=== PATIENT | female | born 1990 | race Caucasian/White ===

== ENCOUNTER 2023-10-25 11:45 | Outpatient (CLI) | payer OTHER, SELFPAY ==
--- NOTE | ~2023-10-25 | US_ITS ---
EXAMINATION: US OB <= 14 weeks fetus DATE: 10/25/2023 12:10 INDICATION: with uncertain dating and viability. TECHNIQUE: Real-time pelvic ultrasound utilizing both a transvaginal and transabdominal probe was pe rformed. The interpreting radiologist was not present for the study. COMPARISON: None. FINDINGS: The uterus measures 10.0 x 6.8 x 8.6 cm. There is an intrauterine gestational sac. A yolk sac and fe maria esther pole are identified. The crown rump length measures 2.8 cm, which correlates with an estimated ge stational age of 9 weeks and 4 days. heart motion is identified measuring 155 beats per minute (bpm) by M-mode Doppler. The right ovary measures 2.5 x 1.7 x 2.5 cm. The left ovary is not visualized. There is no free fluid in the pelvis. IMPRESSION: 1. Single living fetus with heart rate of 155 bpm. 2. Gestational age by ultrasound of 9 weeks 4 day(s) +/- 6 day(s) with ultrasound estimated date of delivery (LILIANA) of 05/25/2024. Reviewed, dictated and finalized at location A. IMPRESSION: 1. Single living fetus with heart rate of 155 bpm. 2. Gestational age by ultrasound of 9 weeks 4 day(s) +/- 6 day(s) with ultraso und estimated date of delivery (LILIANA) of 05/25/2024.
== END 2023-10-25 11:46 ==
LOC: MICIMG 11:48
PROVIDERS: PCP Advanced Practice Midwife; Visit Provider Advanced Practice Midwife
DX: Z36.87 Encounter for antenatal screening for uncertain dates (principal); Z3A.09 9 weeks gestation of pregnancy
CPT/HCPCS: 76801

== ENCOUNTER 2024-04-17 10:05 | Observation (INO) | payer OTHER, SELFPAY ==
[2024-04-17 10:30] VITALS: BP 106/65; PULSE 96
--- NOTE | 2024-04-17 10:31 | OBADM ---
This patient, Brianna Bennett, admitted to the OB room OB Post 116 for observation. Patient/family oriented to hospital policies and general routines including ID bracelet, bed and alarms, visiting hours, pain management, procedures, bathroom and other care routines, personal items, smoking policy, room service/diet, and visiting hours. Patient/Family are encouraged to report perceived risks to care and to ask questions if they do not understand what they are told or what they should do.
[2024-04-17 10:45] VITALS: BP 99/73; PULSE 98
--- NOTE | 2024-04-17 10:59 | PC.NURSE ---
Dr. Stauffer notified of patient's arrival on unit with light brown discharge. No vaginal bleeding, leaking, and good movement. SVE perrformed- /-2. Okay to discharge with pelvic rest and no heavy lifting.
--- OUTSIDE RECORDS SUMMARY | 2024-04-17 11:13 | XMS_ITS | Clinical Summary ---
Author Organization [facility] Address [address] [place] [id number] Care Team Providers Care Autism Specialist Name Role Phone Hyacinth Smith MD Primary Care Provider [phone] CandieNate DO Unavailable [phone] Allergies Active Allergy Reactions Criticality Noted Date Comments Shellfish Allergy Hives High 09/08/2023 Medications sertraline (ZOLOFT) 50 MG tabletIndication s:Anxiety and depression Take 3 tab po qd 270 tablet 3 09/22/2023 Active Active Problems No known active problems Immunizations Name Administration Dates Next Due Dtp (Generic) 11/24/1992,10/02/1991,02/19/1991 ,12/11/1990 Hib (Generic) 12/11/1990 Influenza Adult (Generic) 01/04/2018 MMR (MMRII) 11/24/1992,12/11/1990 Polio Opv (Generic) 11/24/1992,10/02/1991,1990 Tdap (Generic) 02/26/2016 Family History Medical History Relation Comments No Known Problems Father No Known Problems Mother Relation Status Comments Father Alive Mother Alive Social History Tobacco Use Types Packs/Day Years Used Date Smoking Tobacco: Never Passive Smoke Exposure: Never Smokeless Tobacco: Never Tobacco Cessation:Counseling Given: No Alcohol Use Standard Drinks/Week Comments Not Currently 0 (1 standard drink = 0.6 oz pur e alcohol) PHQ-2 Answer Date Recorded Patient Health Questionnaire-2 Score 0 09/22/2023 Comments No Sex and Gender Information Value Date Recorded Sex Assigned at Not on file Legal Sex Female 7:45 PM CDT Gender Identity Not on file Sexual Orientation Not on file Last Filed Vital Signs Vital Sign Reading Time Taken Comments Blood Pressure 105/62 09/22/2023 3:13 PM CDT Pulse 89 09/22/2023 3:13 PM CDT Temperature 36.6 ??C (97.8 ??F) 09/22/2023 3:13 PM CD T Respiratory Rate 18 09/22/2023 3:13 PM CDT Oxygen Saturation 98% 09/22/2023 3:13 PM CDT Inhaled Oxygen Concentration - - Weight 61.7 kg (136 lb) 09/22/2023 3:13 PM CDT Height 170.2 cm (5' 7 ) 09/22/2023 3:13 PM CDT Body Mass Index 21.3 09/22/2023 3:13 PM CDT Plan of Treatment Upcoming Encounters Date Type Department Care Team (Late st Contact Info) Description 09/16/2024 7:00 AM CDT Office Visit [facility] Family Medicine [facility] [address] [place] [address] Hyacinth Smith MD [address] [place], [place] [id number] Health Maintenance Due Date Last Done Comments Hepatitis B Vaccines (1 of 3 - 19+ 3-dose series) 09/27/2007 COVID-19 Vaccine ( season) 2023 Influenza Adult (#1) 2023 01/04/2018 PHQ-2 (Physician [place]) 03/13/2024 09/22/2023 Annual Physical 09/07/2024 09/08/2023 PHQ-2 (Physician [place]) 09/21/2024 09/22/2023 Cervical Cancer Screening Pap Smear (Age 30 to 64) Every 3 Years 08/24/2025 08/24/2022 DTaP, Tdap and Td Vaccines (6 - Td or Tdap) 02/25/2026 02/26/2016, 11/24/1992, 10/02/1991, Additional history exists Cervical Cancer Screening Pap with HPV Testing (Age 30 to 64) Every 5 Years 08/26/2027 08/24/2022 Cervical Cancer Screening with HPV 08/26/2027 Hepatitis C Completed 09/12/2023 HPV Vaccines Aged Out No longer eligi ble based on patient's age to complete this topic Meningococcal B Vaccine Aged Out No l onger eligible based on patient's age to complete this topic Meningococcal Vaccine Aged Out No janae nicci eligible based on patient's age to complete this topic Pneumococcal Vaccine: Pediatrics (0 to 5 Years) and At-Risk Patients (6 to 64 Years) Aged Out No longer eligible based on patient's age to complete this topic RSV Immunizations Under 20 Months Aged Out No longer eligible based on patient's age to complete this topic Procedures Procedure Name Priority Date/Time Associated Diagnosis Comments HEPATITIS C ANTIBODY Routine 09/12/2023 1:32 PM CDT Encounter for hepatitis C screening test for low risk patient from Last 3 Months or Most Recently Relevant to Health Maintenance Results * HEPATITIS C ANTIBODY (09/12/2023 1:32 PM CDT) HEPATITIS C AB NON-REACTI VE NON-REACT LEESA 09/12/2023 10:47 PM CDT [facility] Comment: ANTIBODIES TO HCV NOT DETECTED. DOES NOT EXCLUDE THE POSSIBILITY OF EXPOSURE TO HCV. 09/12/2023 1:32 PM CDT Hyacinth Smith MD LABORATORY Final Result [facility] [address] [place] [address], [id number] from Last 3 Months or Most Recently Relevant to Health Maintenance Insurance [facility] Care Teams Autism Specialist Relationship Specialty Start Date End Date Hyacinth Smith MD [address] [place] [address] PCP - General FAMILY PRACTICE 09/08/23 Nate Schreiber DO [address] [place] [address] 09/08/23
--- NOTE | 2024-04-22 07:59 | PM.OBTRLD ---
OB - Triage/Final Diagnosis Visit Information Reason for evaluation: other (Vaginal spotting) Comments/Additional reasons for admission: I have assessed the risk for this patient, Brianna Bennett, and determined that she would benefit from observation care.
== END 2024-04-17 11:15 | disposition home or self-care (01) ==
PROVIDERS: Admitting Provider Obstetrics & Gynecology Gynecology; PCP Advanced Practice Midwife; Visit Provider Obstetrics & Gynecology Gynecology
DX: O26.853 Spotting complicating pregnancy, third trimester (principal); Z3A.34 34 weeks gestation of pregnancy
CPT/HCPCS: G0378; G0379

== ENCOUNTER 2024-05-05 11:10 | Observation (INO) | payer OTHER, SELFPAY ==
--- NOTE | 2024-05-05 11:10 | OBADM ---
This patient, Brianna Bennett, admitted to the OB room Labor/Delivery/Recovery 105 for observation. Patient/family oriented to hospital policies and general routines including ID bracelet, bed and alarms, visiting hours, pain management, procedures, bathroom and other care routines, personal items, smoking policy, room service/diet, and visiting hours. Patient/Family are encouraged to report perceived risks to care and to ask questions if they do not understand what they are told or what they should do.
[2024-05-05 11:20] VITALS: BMI 23.4
--- OUTSIDE RECORDS SUMMARY | 2024-05-05 12:22 | XMS_ITS | Clinical Summary ---
Author Organization [facility] Address [address] [place] [id number] Care Team Providers Care Prn Physical Therapist Name Role Phone Hyacinth Smith MD Primary Care Provider [phone] CandieNate DO Unavailable [phone] Allergies Active Allergy Reactions Criticality Noted Date [...] 89 09/22/2023 3:13 PM CDT Temperature 36.6 C (97.8 F) 09/22/2023 3:13 PM CDT Respiratory Rate 18 09/22/2023 3:13 PM CDT [...] Description 09/16/2024 7:00 AM CDT Office Visit [facility] Family Medicine [facility] [address] [place] [phone] [place] [address] [place] [phone] Health Maintenance Due Date Last Done Comments Hepatitis B Vaccines (1 of 3 - 19+ 3-dose series) 09/27/2007 COVID-19 Vaccine (2023- season) 2023 Influenza Adult (#1) 2023 01/04/2018 PHQ-2 (Physician [place]) 03/13/2024 09/22/2023 Annual Physical 09/07/2024 09/08/2023 PHQ-2 (Physician [place]) 09/21/2024 09/22/2023 Cervical Cancer Screening Pap Smear [...] 09/12/2023 10:47 PM CDT [facility] Comment: ANTIBODIES TO HCV NOT DETECTED. DOES NOT EXCLUDE THE POSSIBILITY OF EXPOSURE TO HCV. 09/12/2023 1:32 PM CDT Hyacinth Smith MD LABORATORY Final Result [facility] [address] [place] [address], [id number] from Last 3 Months or Most Recently Relevant to Health Maintenance Insurance [facility] Care Teams Prn Physical Therapist Relationship Specialty Start Date End Date Hyacinth Smith MD [address] [address] PCP - General FAMILY PRACTICE 09/08/23 Nate Schreiber DO [address] [address] 09/08/23
--- OUTSIDE RECORDS SUMMARY | 2024-05-05 12:22 | XMS_ITS | Clinical Summary ---
Author Organization [facility] Address [address] [place] [phone] Phone Care Team Providers Care Scrap Metal Collector Name Role Phone Unavailable Primary Care Provider Unavailabl e Encounters Date Type Department Care Team Description 05/01/2024 External Device Data [facility] ABSTRACTION Provider, Abstract 04/10/2024 External Device Data [facility] ABSTRACTION Provider, Abstract 04/04/2024 External Device Data [facility] [place]STRACTION Provider, Abstract from Last 3 Months Social History Tobacco Use Types Packs/Day Years Used Date Smoking Tobacco: Never Assessed Comments Unknown Sex and Gender Information Value Date Recorded Sex Assigned at Not on file Legal Sex Female 7:42 AM CDT Gender Identity Not on file Sexual Orientation Not on file Plan of Treatment Health Maintenance Due Date Last Done Comments HEPATITIS B VACCINES (1 of 3 - 19+ 3-dose series) 09/27/2007 CERVICAL CANCER SCREENING 2018 INFLUENZA VACCINE (#1) 2023 01/04/2018 DTAP/TDAP/TD VACCINES (6 - Td or Tdap) 02/25/2026 02/26/2016, 11/24/1992, 10/02/1991, Additional history exists HPV VACCINES Aged Out No longer eligi ble based on patient's age to complete this topic PNEUMOCOCCAL VACCINE 0-64 YEARS Aged Out No longer eligible based on patient's age to complete this topic Insurance [employer] OPEN ACCESS HMO
--- NOTE | 2024-05-08 12:26 | PM.OBTRLD ---
OB - Triage/Final Diagnosis Visit Information Reason for evaluation: threatened labor Comments/Additional reasons for admission: I have assessed the risk for this patient, Brianna Bennett, and determined that she would benefit from observation care.
== END 2024-05-05 12:35 | disposition home or self-care (01) ==
PROVIDERS: Admitting Provider Obstetrics & Gynecology; Visit Provider Obstetrics & Gynecology
DX: O47.1 False labor at or after 37 completed weeks of gestation (principal); Z3A.37 37 weeks gestation of pregnancy
CPT/HCPCS: G0378; G0379

== ENCOUNTER 2024-05-10 15:02 | Inpatient (IN) | payer OTHER, SELFPAY ==
[2024-05-10] VITALS (79 sets, daily range): BP systolic 84–140; BP diastolic 42–104; PULSE 28–123; TEMP 36.6–37.6; O2SAT 84–100; BMI 23.6
[2024-05-10 15:53] LABS: Basophils Percent Auto 0.4 % (0.2-1.2); Eosinophils Absolute Auto 0.1 K/mm3 (0-0.3); Eosinophils Percent Auto 1.4 % (0-4.4); Hemoglobin 12.2 g/dL (12.0-15.0); Immature Granulocyte Absolute 0.06 K/mm3 (0.00-0.031); Immature Granulocyte Percent A 0.7 % (0-0.5); Lymphocytes Percent Auto 15.5 % (18.3-44.2); Mean Corpuscular HGB Conc 33.9 g/dl (32-36); Mean Corpuscular Hemoglobin 31.9 pg (26-34); Mean Platelet Volume 10.4 fl (7.4-10.4); Monocytes Absolute Auto 0.8 K/mm3 (0.1-0.6); Monocytes Percent Auto 8.3 % (2.6-8.5); Neutrophils Absolute Auto 6.7 K/mm3 (1.3-6.7); Neutrophils Percent Auto 73.7 % (45.5-73.1); Platelet Count Result 226 k/mm3 (150-375); Red Blood Count 3.83 M/mm3 (4.2-5.4); Red Cell Distribution Width 12.8 % (11.5-14.5); White Blood Count 9.1 K/mm3 (4.5-10.0)
[2024-05-10] MEDS: LACTATED RINGERS 1,000 ML 125 ML IV CONT ×2 (15:59→16:45)
--- NOTE | 2024-05-10 16:23 | LDADM ---
This patient, Brianna Bennett, was admitted to Labor/Delivery/Recovery 107 on 05/10/24 at 15:02. Plans for labor, pain management and were discussed with patient. Patient/family oriented to hospital policies and general routines including ID bracelet, bed and alarms, visiting hours, pain management, procedures, bathroom and other care routines, personal items, smoking policy, room service/diet and guest tray routines, security routines, and visiting hours. Patient/Family are encouraged to report perceived risks to care and to ask questions if they do not understand what they are told or what they should do. See OBIX for further documentation.
[2024-05-10 16:29] LABS: Syphilis IgG/IgM Antibody Negative (Negative)
[2024-05-10] MEDS: ONDANSETRON INJ 4 MG/2 ML VIAL IV PUSH (16:42)
[2024-05-10 16:44] LABS: HIV 1/2 Ab P24 Ag Result Negative (Negative)
--- NOTE | 2024-05-10 17:36 | WPDANESEPPF ---
Anes - Initial Pre Proc Eval Date/Time: 05/10/24 17:36 Surgeon: Elina Stauffer MD Pre Op Diagnosis: Labor Patient Data Age: 33 Gender: F Height: 1.7 m Weight: 68.6 kg Last Vital Signs Temp 37.6 C 05/10/24 16:00 Pulse 94 05/10/24 17:35 BP 120/64 05/10/24 17:35 Pulse Ox 97 05/10/24 17:31 Allergies Allergy/AdvReac Type Severity Reaction Status Date / Time seafood Allergy Mild hives Uncoded 05/05/24 12:41 Home Medications ?Medication ?Instructions ?Recorded ?Confirmed ?Type sertraline 50 mg tablet 150 mg PO DAILY 05/05/24 05/10/24 History cholecalciferol (vitamin D3) 50 2,000 unit PO ONCE 05/10/24 05/10/24 History mcg (2,000 unit) tablet (D3 DOTS) ferrous sulfate 325 mg (65 mg 325 mg PO DAILY 05/10/24 05/10/24 History iron) tablet (Feosol) vit no.95-ferrous 1 tablet PO DAILY 05/10/24 05/10/24 History fumarate 28 mg-folic acid 800 mcg tablet () Laboratory Tests 05/10/24 15:47 WBC 9.1 K/mm3 (4.5-10.0) RBC 3.83 L M/mm3 (4.2-5.4) Hgb 12.2 g/dL (12.0-15.0) Hct 36.0 L % (37.0-47.0) MCV 94.0 fl (80-100) MCH 31.9 pg (26-34) MCHC 33.9 g/dl (32-36) RDW 12.8 % (11.5-14.5) Plt Count 226 k/mm3 (150-375) MPV 10.4 fl (7.4-10.4) Immature Gran % (Auto) 0.7 H % (0-0.5) Neut % (Auto) 73.7 H % (45.5-73.1) Lymph % (Auto) 15.5 L % (18.3-44.2) [place] % (Auto) 8.3 % (2.6-8.5) Eos % (Auto) 1.4 % (0-4.4) Baso % (Auto) 0.4 % (0.2-1.2) Lymph # (Auto) 1.40 K/mm3 (0.9-3.2) [place] # (Auto) 0.8 H K/mm3 (0.1-0.6) Eos # (Auto) 0.1 K/mm3 (0-0.3) Baso # (Auto) 0.0 K/mm3 (0.0-0.1) Abs Immat Gran (auto) 0.06 H K/mm3 (0.00-0.031) Absolute Neuts (auto) 6.7 K/mm3 (1.3-6.7) Absolute Nucleated RBC 0.000 K/mm3 (0.0-0.012) Nucleated RBC % 0.0 % (0.0-0.2) Syphilis IgG/IgM Ab Negative (Negative) HIV 1&2 Ab/P24 Ag 4thGn Negative (Negative) Blood Type O Positive Antibody Screen Negative Patient hx anesthesia problems: none Family hx anesthesia problems: none Results Review: All pre-operative results and documents have been reviewed as part of the pre-operative evaluation. [facility] Family History Family History Other Patient denies significant medical history Social History Social History Smoking status: Never smoker Second hand tobacco smoke exposure: No Do You Feel Safe in your Home?: Yes Lack of Transportation: No Lack of Food: Never True Current Housing: I Have Housing Concerned About Future Housing: No Difficulty Paying Gas/Electric Bills: No Difficulty Paying for Meds: No Currently Unemployed: No Education: High School Diploma/GED Difficulty w/ Childcare or Family Care: No Spiritual care concerns: No Anes - Eval Final PreProcedure Day of Procedure 05/10/24 17:36 Patient weight: normal Heart: tachycardia Neurological: alert and oriented Last oral intake: >/= 8 hours ASA classification: III Emergent: no Anesthetic plan: proceed Anesthesia type and monitoring: regional epidural and standard monitoring Results Review: All pre-operative results and documents have been reviewed as part of the pre-operative evaluation. Informed Consent: The patient's anesthetic plan and its attendant risks and benefits were discussed with the patient/family/POA. Questions were solicited and answers provided to the satisfaction of the patient/family/POA.
--- NOTE | 2024-05-10 18:30 | PM.IMHP ---
H&P: HPI History of Present Illness Date/Time: 05/10/24 18:30 Chief Complaint: Water broke Narrative: 33 y/o at 37 6/7 weeks with gush of fluid. SROM confirmed here. GBS neg. Now comfortable with epidural. Review of Systems Review of Systems: All systems reviewed & are unremarkable except as noted in HPI and below PMFSH Past Medical History Medical History History of suicide attempt History of anxiety History of depression Family History Family History Other Patient denies significant medical history Social History Social History Smoking status: Never smoker Second hand tobacco smoke exposure: No Do You Feel Safe in your Home?: Yes Lack of Transportation: No Lack of Food: Never True Current Housing: I Have Housing Concerned About Future Housing: No Difficulty Paying Gas/Electric Bills: No Difficulty Paying for Meds: No Currently Unemployed: No Education: High School Diploma/GED Difficulty w/ Childcare or Family Care: No Spiritual care concerns: No Meds Home Medications and Allergies Home Medications ?Medication ?Instructions ?Recorded ?Confirmed ?Type sertraline 50 mg tablet 150 mg PO DAILY 05/05/24 05/10/24 History cholecalciferol (vitamin D3) 50 2,000 unit PO ONCE 05/10/24 05/10/24 History mcg (2,000 unit) tablet (D3 DOTS) ferrous sulfate 325 mg (65 mg 325 mg PO DAILY 05/10/24 05/10/24 History iron) tablet (Feosol) vit no.95-ferrous 1 tablet PO DAILY 05/10/24 05/10/24 History fumarate 28 mg-folic acid 800 mcg tablet () Allergies Allergy/AdvReac Type Severity Reaction Status Date / Time seafood Allergy Mild hives Uncoded 05/05/24 12:41 Vital Signs Vital Signs - 24 hr 05/10/24 15:59 05/10/24 16:00 05/10/24 16:01 Temperature 37.6 C Pulse Rate 102 H 90 Blood Pressure 131/73 140/65 Pulse Oximetry 05/10/24 16:16 05/10/24 16:30 05/10/24 16:42 Temperature Pulse Rate 88 87 Blood Pressure 119/83 123/71 Pulse Oximetry 100 05/10/24 16:45 05/10/24 16:47 05/10/24 16:52 Temperature Pulse Rate 81 Blood Pressure 128/87 Pulse Oximetry 100 100 05/10/24 16:56 05/10/24 16:56 05/10/24 17:01 Temperature Pulse Rate 86 Blood Pressure 133/61 Pulse Oximetry 95 93 100 05/10/24 17:06 05/10/24 17:06 05/10/24 17:15 Temperature Pulse Rate 85 Blood Pressure 133/74 Pulse Oximetry 100 100 05/10/24 17:19 05/10/24 17:21 05/10/24 17:26 Temperature Pulse Rate 118 H Blood Pressure 137/71 Pulse Oximetry 100 100 97 05/10/24 17:26 05/10/24 17:28 05/10/24 17:30 Temperature Pulse Rate 100 84 Blood Pressure 107/78 125/67 Pulse Oximetry 100 05/10/24 17:31 05/10/24 17:33 05/10/24 17:35 Temperature Pulse Rate 87 94 Blood Pressure 126/63 120/64 Pulse Oximetry 97 05/10/24 17:36 05/10/24 17:38 05/10/24 17:40 Temperature 37.4 C Pulse Rate 85 89 Blood Pressure 127/56 L 125/59 L Pulse Oximetry 97 05/10/24 17:41 05/10/24 17:43 05/10/24 17:45 Temperature Pulse Rate 91 84 Blood Pressure 117/97 H 124/72 Pulse Oximetry 96 05/10/24 17:46 05/10/24 17:50 05/10/24 17:51 Temperature Pulse Rate 104 H Blood Pressure 97/82 L Pulse Oximetry 100 100 05/10/24 17:53 05/10/24 17:55 05/10/24 17:56 Temperature Pulse Rate 123 H 109 H Blood Pressure 87/54 L 111/77 Pulse Oximetry 100 05/10/24 17:58 05/10/24 18:00 05/10/24 18:01 Temperature 37.4 C Pulse Rate 92 84 Blood Pressure 84/42 L 112/68 Pulse Oximetry 100 05/10/24 18:03 05/10/24 18:05 05/10/24 18:06 Temperature Pulse Rate 96 74 Blood Pressure 116/70 111/87 Pulse Oximetry 100 05/10/24 18:08 05/10/24 18:10 05/10/24 18:11 Temperature Pulse Rate 86 94 Blood Pressure 122/74 128/74 Pulse Oximetry 100 05/10/24 18:13 05/10/24 18:15 05/10/24 18:16 Temperature Pulse Rate 119 H 82 Blood Pressure 122/68 122/67 Pulse Oximetry 98 05/10/24 18:18 05/10/24 18:20 05/10/24 18:23 Temperature Pulse Rate 97 83 108 H Blood Pressure 102/73 116/61 126/104 H Pulse Oximetry 05/10/24 18:25 05/10/24 18:26 Temperature Pulse Rate 91 Blood Pressure 120/69 Pulse Oximetry 100 Exam Const: Orientation/consciousness: patient oriented x3 Other: Well-developed, well-nourished female in no acute distress. Neck: Thyroid: thyroid normal Lymphatic: no lymphadenopathy noted (in neck, axilla or inguinal nodes) Resp: Effort & Inspection: normal respiratory effort Auscultation: clear to auscultation bilaterally Cardio: Rate: regular rate Rhythm: regular rhythm Heart sounds: S1 normal heart sound present and S2 normal heart sound present GI: Other: ABD: Soft, nontender, nondistended, gravid. NST reactive. TOCO: contractions every 2-3 min. No guarding or rebound tenderness. No hepatosplenomegaly. : General: Yes no CVA tenderness Other: Cervix C/+2. Back/Spine/Pelvis: Back: no CVA tenderness Skin: General skin exam: normal color and no rashes or lesions noted Neuro: General: patient oriented x3 Extrem: Other: Extremities: nontender with no edema Psych: Mental Status: mental status grossly normal Affect: normal affect H&P: Results Labs Labs: Short CBC 05/10/24 Range/Units 15:47 WBC 9.1 (4.5-10.0) K/mm3 Hgb 12.2 (12.0-15.0) g/dL Hct 36.0 L (37.0-47.0) % Plt Count 226 (150-375) k/mm3 Assessment and Plan Assessment and plan (1) Term : Code(s): Z34.90 - Encounter for supervision of normal , unspecified, unspecified trimester Status: Acute Assessment and Plan: A: IUP at 37 6/7 weeks in labor. P: Begin pushing. Anticipate . (2) Active labor at term: Status: Acute
[2024-05-10] MEDS: OXYTOCIN 30 UNITS/NS 500 ML 30 UNITS/500 ML BAG IV CONT (19:10)
--- NOTE | 2024-05-10 19:58 | PM.OBPRVD ---
OB - Vaginal Delivery Note Procedure Delivery date: 05/10/24 Delivery monitor: External FHT and External Uterine Route of delivery: Episiotomy description: None Laceration Description: None Specimen: Yes (cord blood) Quantitative Blood Loss (ml): 180 Anesthesia type: Epidural Disposition: PACU Complications: None Narrative: 33 y/o at 37 6/7 weeks gestation who presented to the hospital after a gush of fluid. SROM diagnosed. She received an epidural for pain control. Her labor progressed and her cervix dilated completely. The second stage of labor was augmented with oxytocin. She pushed and delivered the 's head to the perineum, followed by the body. The nose and mouth were bulb suctioned. After a delay, the cord was clamped and cut. The infant was handed off the field. Cord blood was collected. The placenta delivered spontaneously and was grossly normal in appearance. The usual 3 vessel cord was noted. There were no lacerations. Needle and instrument counts were correct. The patient was taken to recovery room in stable condition. The went to the nursery in stable condition. I was present and scrubbed for the entire delivery. [place] Baby Date of : 05/10/24 Time of : 19:48 Gestational Age by Date: 37 gender: Male Weight (pounds): 6 Weight (ounces): 11 presentation: vertex position: Left Occiput Anterior Placenta delivery description: Spontaneous and Normal Configuration Cord Vessel Description: 3 Vessels and Delayed Cord Clamping score one minute: 9 score five minutes: 9
--- NOTE | 2024-05-10 20:01 | PM.OBDSVD ---
DS: Admitting Diagnosis Discharge Date 05/12/24 Admitting Diagnosis IUP at 37 6/7 weeks SROM DS: Discharge Diagnosis Discharge Diagnosis (1) (normal spontaneous vaginal delivery): Code(s): O80 - Encounter for full-term uncomplicated delivery Status: Acute OB - DS: Summary OB Procedures : None OB Procedures Intrapartum: Spontaneous Vag Delivery OB Procedures: : None Peripartum Data Laceration Description: None Episiotomy description: None Time Spent with Patient Time attestation: Total time spent providing and/or coordinating discharge services: DS: Data Data Completed and Pending Labs on day of discharge: Labs from last 24 hours 05/10/24 15:47 WBC 9.1 RBC 3.83 L Hgb 12.2 Hct 36.0 L MCV 94.0 MCH 31.9 MCHC 33.9 RDW 12.8 Plt Count 226 MPV 10.4 Immature Gran % (Auto) 0.7 H Neut % (Auto) 73.7 H Lymph % (Auto) 15.5 L [place] % (Auto) 8.3 Eos % (Auto) 1.4 Baso % (Auto) 0.4 Lymph # (Auto) 1.40 [place] # (Auto) 0.8 H Eos # (Auto) 0.1 Baso # (Auto) 0.0 Abs Immat Gran (auto) 0.06 H Absolute Neuts (auto) 6.7 Absolute Nucleated RBC 0.000 Nucleated RBC % 0.0 Syphilis IgG/IgM Ab Negative HIV 1&2 Ab/P24 Ag 4thGn Negative Blood Type O Positive Antibody Screen Negative Discharge Plan Discharge Attending physician on discharge: Jerry Morrison Discharging Clinician: Jerry Morrison Patient Disposition: Home, Self-Care Activity: pelvic rest Diet: regular Discharge Instructions: Call or return if temperature above 100.4? F, increased abdominal pain, increased vaginal bleeding or any new problems. Patient Language: [place] Island[place] Stand Alone Forms: General Discharge Information Follow-up/Referrals: Elina Stauffer MD [Physician] - 6 Weeks Discharge Medications: New ibuprofen 600 mg tablet 600 mg PO Q6H PRN (Reason: cramps) Qty: 30 0RF Continued PNV cmb#95-ferrous fumarate-FA [] 28 mg iron- 800 mcg tablet 1 tablet PO DAILY ferrous sulfate [Feosol] 325 mg (65 mg iron) tablet 325 mg PO DAILY cholecalciferol (vitamin D3) [D3 DOTS] 50 mcg (2,000 unit) tablet 2,000 unit PO ONCE sertraline 50 mg tablet 150 mg PO DAILY Date of admission: 05/10/24 15:02 Primary Care Provider: UNKNOWN,DOCTOR Admitting Provider: Elina Stauffer Attending physician on admission: Elina Stauffer Condition: Stable
[2024-05-10] MEDS: OXYTOCIN 30 UNITS/NS 500 ML 30 UNITS/500 ML BAG 125 UNITS IV CONT (20:23)
[2024-05-10] MEDS: BENZOCAINE 20% AER SPR (*SP) 56 GM CAN 1 SPRAY TOPICAL (22:00)
[2024-05-10] MEDS: WITCH HAZEL 40 PADS 1 PAD TOPICAL (22:00)
[2024-05-11 01:47] VITALS: PULSE 79; O2SAT 98
[2024-05-11 01:49] VITALS: BP 109/66; PULSE 77
[2024-05-11 04:11] LABS: Hemoglobin 11.2 g/dL (12.0-15.0)
[2024-05-11 04:16] VITALS: BP 108/64; PULSE 73; RESP 18; TEMP 36.4; O2SAT 100
[2024-05-11 08:00] VITALS: BP 115/82; PULSE 76; RESP 18; TEMP 37.2; O2SAT 100
[2024-05-11] MEDS: SERTRALINE HCL 50 MG TABLET 150 MG PO (08:43)
--- NOTE | 2024-05-11 09:48 | WPDANLDPN2 ---
Anes-Prog Note L&D Date/Time: 05/11/24 09:48 Comfortable throughout: labor and delivery Neuraxial method: epidural Epidural/Spinal procedure site: clean & non-tender Neuro status: Neuro function grossly intact. Cardiovascular status: normal Respiratory status: normal Airway patency: baseline Mental status: baseline Post-Op hydration status: normal Vital Signs: Last Vital Signs Temp 97.6 F 05/11/24 04:16 Pulse 73 05/11/24 04:16 Resp 18 05/11/24 04:16 BP 108/64 05/11/24 04:16 Pulse Ox 100 05/11/24 04:16 O2 Del Method Room Air 05/10/24 22:30 Pain score (VAS): 0 I/O: Intake & Output 05/10/24 05/11/24 05/11/24 23:59 07:59 15:59 Intake Total 1000 Output Total 430 Balance 570 Post-procedural complaints: none Patient feedback: Patient satisfied with anesthetic care.
--- NOTE | 2024-05-11 10:57 | PM.OBPNVD ---
OB - PN: Subj Subjective Date/time seen: 05/11/24 10:57 Narrative: Pain OK. Would like circumcision for son. OB - PN: Obj Data Labs 05/11/24 04:06 Labs: Laboratory Results - last 24 hr 05/10/24 05/11/24 15:47 04:06 WBC 9.1 RBC 3.83 L Hgb 12.2 11.2 L Hct 36.0 L 34.0 L MCV 94.0 MCH 31.9 MCHC 33.9 RDW 12.8 Plt Count 226 MPV 10.4 Immature Gran % (Auto) 0.7 H Neut % (Auto) 73.7 H Lymph % (Auto) 15.5 L [place] % (Auto) 8.3 Eos % (Auto) 1.4 Baso % (Auto) 0.4 Lymph # (Auto) 1.40 [place] # (Auto) 0.8 H Eos # (Auto) 0.1 Baso # (Auto) 0.0 Abs Immat Gran (auto) 0.06 H Absolute Neuts (auto) 6.7 Absolute Nucleated RBC 0.000 Nucleated RBC % 0.0 Syphilis IgG/IgM Ab Negative HIV 1&2 Ab/P24 Ag 4thGn Negative Blood Type O Positive Antibody Screen Negative OB - PN A/P Plan day: 1 Comments: A: PPD#1, doing well. P: Routine care. Reviewed circ. Exam Psych: Other: AVSS ABD soft, nontender, fundus firm EXT nontender
[2024-05-11 16:30] VITALS: BP 112/77; PULSE 72; RESP 16; TEMP 36.7; O2SAT 100
[2024-05-11 18:45] VITALS: BP 123/72; PULSE 71; RESP 18; TEMP 36.8
[2024-05-12 08:30] VITALS: BP 121/54; PULSE 76; RESP 16; TEMP 36.1; O2SAT 99
[2024-05-12] MEDS: DOCUSATE SODIUM 100 MG CAPSULE PO (08:32)
[2024-05-12] MEDS: SERTRALINE HCL 50 MG TABLET 150 MG PO (08:32)
--- NOTE | 2024-05-12 10:30 | PC.NURSE ---
Care Coordination saw patient and she requested that this RN give mother a gift basket along with a diaper bag. Mother is also already set up with WIC.
--- NOTE | 2024-05-12 10:57 | PM.OBPNVD ---
OB - PN: Subj Subjective Date/time seen: 05/12/24 10:57 Narrative: Pain OK. Would like to go home. OB - PN: Obj Data Labs 05/11/24 04:06 OB - PN A/P Plan day: 2 Comments: A: PPD#2, doing well. P: Home to f/u 6 weeks. Exam Psych: Other: AVSS ABD soft, nontender, fundus firm EXT nontender
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
--- NOTE | 2024-05-12 12:30 | PC.NURSE ---
Patient viewed the discharge video Mother & Baby Care, The First Two Weeks . Patient was given the opportunity and encouraged to ask questions. Patient verbalized understanding of information shared and has been given the mother/baby guide for home reference.
== END 2024-05-12 14:20 | disposition home or self-care (01) | DRG 807 ==
LOC: ANHLDR 20:02 → ANHOB2 05-12 13:07 → ANHLDR 05-14 13:59 → ANHOB2 05-14 13:59
PROVIDERS: Admitting Provider Obstetrics & Gynecology; Visit Provider Obstetrics & Gynecology
DX: O80 Encounter for full-term uncomplicated delivery (principal); Z37.0 Single live birth; Z3A.37 37 weeks gestation of pregnancy
CPT/HCPCS: 36415; 85014; 85018; 85025; 86593; 86703; 86850; 86900; 86901; A9270; G0432; J2405; J2590; J2795; J7120